=== PATIENT | female | born 1945 | race Caucasian/White ===

== ENCOUNTER 2016-09-12 23:21 | Emergency (ER) | payer BC ==
[~2016-09-12] VITALS: Ht 165.1 cm; Wt 67.0 kg
[~2016-09-12 23:21] MED LIST: UNK MEDS
[2016-09-12 23:47] VITALS: Ht 165.1 cm; Wt 67.0 kg
[2016-09-13] MEDS ORDERED: METHYLPREDNISOLONE 125 MG INJ IM ONE (01:00)
[2016-09-13] MEDS ORDERED: DIAZEPAM 5 MG TAB PO ONE (01:30)
--- NOTE | 2016-09-13 02:17 | ERD ---
ER Documentation Chief Complaint Date/Time DATE: 09/13/16 TIME: 02:08 Chief Complaint generalized hives x 3 weeks, waiting on allergy test HPI This pleasant 70-year-old female presents to emergency department today with urticaria. Patient has appointment with tub operator in 6 days has been taken off of all antihistamines, she is taking singular. Patient reports she is here today because she cannot stand the itching. Patient is unaware of what is causing urticaria, states she has been suffering with symptoms intermittently for months. Patient is noted to have bright red raised urticarial wheals on face neck hands arms stomach back legs. Patient's lips are not swollen, tongue is midline. Patient is able to swallow freely, denies any difficulty breathing or talking. Voice is not muffled. ROS All systems reviewed and are negative except as per history of present illness. Medications Home Meds Active Scripts Diazepam* (Valium*) 5 Mg Tablet, 5 MG PO Q8, #10 TAB Prov:SANTIAGO,RICHARD 09/13/16 Prednisone* (Prednisone*) 20 Mg Tab, 40 MG PO DAILY for 5 Days, TAB Prov:SANTIAGO,RICHARD 09/13/16 Reported Medications [Unk Meds ] No Conflict Check 01/28/14 Allergies Allergies: Coded Allergies: No Known Allergy (Unverified , 01/28/14) PMhx/Soc History of Surgery: Yes (PACEMAKER ) Hx Alcohol Use: No Hx Substance Use: No Hx Tobacco Use: No Physical Exam Vitals Vital Signs Date Time Temp Pulse Resp B/P Pulse Ox O2 Delivery O2 Flow Rate FiO2 09/13/16 03:07 98.9 72 18 122/63 100 Room Air 09/12/16 23:47 98.9 70 20 153/70 98 Vitals stable, nursing notes reviewed Physical Exam Const: No acute distress obviously uncomfortable from itching Head: Atraumatic Eyes: Normal Conjunctiva, lid margins intact, no periorbit edema ENT: Normal External Ears, Nose and Mouth. Oral mucosa moist, lips are nonedematous, tongue midline, normal, no swelling Neck: Full range of motion..~ No meningismus. Resp: Clear to auscultation bilaterally, no rales wheezes or rhonchi Cardio: 100% paced on monitor, regular rate and rhythm, no murmurs Abd: Skin: Patient has gross urticaria, red raised wheals, total body. Skin intact , no secondary infection site. Patient has known dermographism noted Back: Ext: No cyanosis, or edema Neur: Awake and alert Psych: Normal Mood , anxious Results 24 hrs Current Medications Medications (Trade) Dose Ordered Sig/Ron Route PRN Reason Start Time Stop Time Status Last Admin Dose Admin Methylprednisolone Sodium Succinate (Solu-Medrol) 125 mg ONCE ONCE IM 09/13/16 01:00 09/13/16 01:01 DC 09/13/16 00:53 Diazepam (Valium) 5 mg ONCE ONCE PO 09/13/16 01:30 09/13/16 01:31 DC 09/13/16 01:11 Procedures/MDM This pleasant 70-year-old female coming in today for urticaria. Patient reports that she has appointment with tub operator has been taken off all antihistamines for skin testing. Patient is taking singular but reports it is not helping. Is uncomfortable, has red inflamed erythemic wheals over her entire body. Discussed treatment plan with patient, nurse practitioner decides to treat with steroid, Solu-Medrol 125 mg given intramuscularly. Patient becomes nervous after injection, reports anxiety disorder. Patient was given 5 mg of p.o. Valium, reassessed in 10 minutes patient reports much improvement, she remains in emergency department for monitoring and additional 20 minutes. Patient reports pruritus has decreased with steroid injection. Valium. Patient is appropriate for outpatient treatment with a 5 day course of 40 mg prednisone, call tub operator, take Benadryl if symptoms exacerbate or pruritus returns on steroid. I feel the patient is stable for discharge at this time. I have discussed results, examination findings, the treatment plan with the patient and family present prior to discharge. Indications for emergent reevaluation, side effects of medication were also discussed. All questions were answered. Patient verbalizes understanding and agrees with plan of care. Departure Diagnosis: Primary Impression: Urticaria of unknown origin Patient Instructions: Tray Additional Instructions: Thank you for for coming to [facility] for your care today. Please ask your nurse or provider if you have questions about your care today and do not leave until all your questions have been answered. Please use any medications given as directed and follow-up with your doctor (or the doctor you were referred to) in the next 2-3 days. If you do not have a primary care doctor you may follow up at the [facility] (listed below). You may also use motrin and tylenol as needed for fever and/or pain unless instructed otherwise by your provider or nurse. Indications for more urgent follow-up have been discussed, but you may return to the Emergency Department at ANY time for any worrisome or worsening symptoms. If you have abdominal pain, please know that no test or exam you received is perfect and you should follow up within 8 hours for continued pain. If you had any imaging studies today, such as an X-Ray or CT Scan, these studies will be reviewed later by a radiologist. You will be called if there are important findings that were not identified today, so make sure the contact information you provided at registration is correct. If you received any narcotic pain control medicine today, such as Vicodin, Morphine or Dilaudid, your coordination and judgment may be affected for a number of hours. Please do not drive or operate heavy machinery, and you may want someone to assist you at home. If you were given a prescription for narcotic medication, be aware that it is very addictive- use sparingly and only if necessary. RICHARD HENDERSON Sep 13, 2016 02:17
[2016-09-13] MEDS ORDERED: PRED20TA PO (02:18)
[2016-09-13] MEDS ORDERED: DIAZ-90 PO (02:19)
[2016-09-13 03:07] VITALS: BP 122/63; PULSE 72; RESP 18; TEMP 98.9
== END 2016-09-13 03:08 | disposition home or self-care (01) ==
LOC: FTE 23:21
DX: L50.9 Urticaria, unspecified (principal); Z95.0 Presence of cardiac pacemaker
CPT/HCPCS: 96372; 99284; J2930